=== PATIENT | male | born 1970 | race Hispanic/Latino ===

== ENCOUNTER 2019-04-16 21:57 | Emergency (ER) | payer OTHER ==
[2019-04-16] MEDS ORDERED: TETRACAINE HCL 0.5% 4 ML OPHTH SOLN ONE (22:32)
[2019-04-16] MEDS ORDERED: FLUORESCEIN SODIUM 1 STRIP STRIP ONE (22:33)
[2019-04-16] MEDS ORDERED: GENTAMICIN SULFATE 0.3% 5ML DROPS ONE (22:57)
[2019-04-16] MEDS ORDERED: IBUPROFEN 600 MG TABLET ONE (22:57)
== END 2019-04-16 23:06 | disposition home or self-care (01) ==
LOC: EDH 21:57
DX: S05.02XA Injury of conjunctiva and corneal abrasion without foreign body, left eye, initial encounter (principal); X58.XXXA Exposure to other specified factors, initial encounter; Y93.89 Activity, other specified; Y92.89 Other specified places as the place of occurrence of the external cause; Y99.8 Other external cause status